=== PATIENT | female | born 1990 ===

== ENCOUNTER 2018-12-22 13:37 | Emergency (ER) | payer OTHER ==
[2018-12-22 14:01] VITALS: RESP 18; BMI 46.3
[2018-12-22 14:26] LABS: URINE BILIRUBIN NEGATIVE (NEGATIVE); URINE BLOOD NEGATIVE (NEGATIVE); URINE GLUCOSE (UA) NEGATIVE (NEGATIVE); URINE LEUKOCYTE ESTERASE NEGATIVE Leu/uL (NEGATIVE); URINE PROTEIN NEGATIVE mg/dL (<30 mg/dL); URINE UROBILINOGEN 0.2 E.U./dL (<1 E.U./dL)
[2018-12-22 14:27] LABS: HCG,QUALITATIVE URINE POSITIVE (NEGATIVE); URINE APPEARANCE CLEAR (CLEAR); URINE COLOR YELLOW (YELLOW)
--- NOTE | 2018-12-22 14:36 | ED PDOC ---
Arrival/HPI - General Chief Complaint: Abdominal Pain Historian: Patient - History of Present Illness Narrative History of Present Illness (Text): 12/22/18 14:34 28 y/o female, no significant pmh, nkda, , LMP 10/11/2018, c/o nausea/vomiting x 2 days. Pt. stated that she think she is , been having nausea and vomiting, no vaginal bleeding or discharge, no flank pain, no palpitation, no rash, no night sweat, no other medical or psychological complaints. Past Medical History - Provider Review Nursing Documentation Reviewed: Yes - Infectious Disease Hx of Infectious Diseases: None - Psychiatric Hx Substance Use: No - Surgical History Hx Abdominal Aortic Aneurysm Repair: No Hx Section: Yes Hx Orthopedic Surgery: Yes (left ankle plates /rods) - Anesthesia Hx Anesthesia: Yes Hx Anesthesia Reactions: No Family/Social History - Physician Review Nursing Documentation Reviewed: Yes Family/Social History: Unknown Family HX Smoking Status: Never Smoked Hx Alcohol Use: No Hx Substance Use: No Allergies/Home Meds Allergies/Adverse Reactions: Allergies No Known Allergies Allergy (Verified 11/14/17 05:51) Home Medications: Home Meds Medication Instructions Recorded Confirmed Etonogestrel [Nexplanon] 68 mg SQ TITR 11/14/17 11/14/17 Review of Systems - Review of Systems Constitutional: absent: Fatigue, Fevers Eyes: absent: Vision Changes ENT: absent: Hearing Changes Respiratory: absent: SOB, Cough Cardiovascular: absent: Chest Pain Gastrointestinal: Nausea, Vomiting. absent: Abdominal Pain, Diarrhea, Anorexia, Food Intolerance Genitourinary Female: absent: Dysuria, Frequency, Hematuria, Urine Output Changes Musculoskeletal: absent: Arthralgias, Back Pain Skin: absent: Rash, Pruritis Neurological: absent: Headache, Dizziness Psychiatric: absent: Anxiety, Depression, Suicidal Ideation Physical Exam Vital Signs Reviewed: Yes Vital Signs Temp Pulse Resp BP Pulse Ox 12/22/18 14:01 98.4 F 90 18 125/76 100 Temperature: Afebrile Blood Pressure: Normal Pulse: Regular Respiratory Rate: Normal Appearance: Positive for: Well-Appearing, Non-Toxic, Comfortable Pain Distress: Mild Mental Status: Positive for: Alert and Oriented X 3 - Systems Exam Head: Present: Atraumatic, Normocephalic Pupils: Present: PERRL Extroacular Muscles: Present: EOMI Conjunctiva: Present: Normal Mouth: Present: Moist Mucous Membranes Nose (External): Present: Atraumatic. No: Abrasion, Contusion, Laceration Nose (Internal): Present: Normal Inspection, No Active Bleeding. No: Edematous, Rhinorrhea, Septal Deviation, Septal Hematoma, Epistaxis Neck: Present: Normal Range of Motion Respiratory/Chest: Present: Clear to Auscultation, Good Air Exchange. No: Respiratory Distress, Accessory Muscle Use, Wheezes, Decreased Breath Sounds, Rales, Retracting, Rhonchi, Tachypneic, Tender to Palpation Cardiovascular: Present: Regular Rate and Rhythm, Normal S1, S2. No: Murmurs Abdomen: No: Tenderness, Distention, Peritoneal Signs, Rebound, Guarding Genitourinary/Pelvic Exam: Present: Other (Pt. declined. ) Back: Present: Normal Inspection. No: CVA Tenderness, Midline Tenderness, Paraspinal Tenderness, Pain with Leg Raise, Decubitus Ulcer Upper Extremity: Present: Normal Inspection. No: Cyanosis, Edema Lower Extremity: Present: Normal Inspection. No: Edema Neurological: Present: GCS=15, CN II-XII Intact, Speech Normal, Motor Func Grossly Intact, Normal Cerebellar Funct, Gait Normal, Memory Normal Skin: Present: Warm, Dry, Normal Color. No: Rashes Psychiatric: Present: Alert, Oriented x 3, Normal Insight, Normal Concentration Medical Decision Making ED Course and Treatment: 12/22/18 14:37 -Labs -Sonogram -Observe and reassess 12/22/18 16:13 -Urine hcg is negative -UA show no UTI -Beta hcg 1502 -Blood type B+ -Labs show no acute findings -Sonogram ossible early intrauterine gestation. Sac diameter of 4 mm is out of range for age determination. No pole. No detectable cardiac activity. No subchorionic hemorrhage. There fluid in the pelvis, of uncertain significance. -Pt. has no pain, no vaginal bleeding/discharge. -Labs and radiology result discussed with patient, advised outpatient obgyn for follow up lab work and sonogram follow up. -Discharge home with diclegis for nausea/vomiting during , tylenol for pain as needed, follow up with your own pmd and obgyn within 2 days, return to the ER for any new or worsening signs or symptoms. - Lab Interpretations Lab Results: Urine Color Yellow (YELLOW) 12/22/18 13:59 Urine Appearance Clear (CLEAR) 12/22/18 13:59 Urine pH 6.0 (4.7-8.0) 12/22/18 13:59 Ur Specific Reynolds 1.025 (1.005-1.035) 12/22/18 13:59 Urine Protein Negative mg/dL (<30 mg/dL) 12/22/18 13:59 Urine Glucose (UA) Negative mg/dL (NEGATIVE) 12/22/18 13:59 Urine Ketones Negative mg/dL (NEGATIVE) 12/22/18 13:59 Urine Blood Negative (NEGATIVE) 12/22/18 13:59 Urine Nitrate Negative (NEGATIVE) 12/22/18 13:59 Urine Bilirubin Negative (NEGATIVE) 12/22/18 13:59 Urine Urobilinogen 0.2 E.U./dL (<1 E.U./dL) 12/22/18 13:59 Ur Leukocyte Esterase Negative Diana/uL (NEGATIVE) 12/22/18 13:59 Urine HCG, Qual Positive (NEGATIVE) 12/22/18 13:59 Urine HCG, Qual Positive (NEGATIVE) 12/22/18 13:59 - RAD Interpretation Radiology Orders: 12/22/18 14:31 TRANSVAGINAL [US] Stat Date of service: 12/22/2018 PROCEDURE: OB Pelvic Ultrasound HISTORY: , abd pain 11/11/2018 COMPARISON: None available. FINDINGS: UTERUS: Gestational sac: There is an intrauterine gestational sac measuring 4 mm in diameter. This is out of range for age determination. There is no identifiable yolk sac or pole. There is no subchorionic hemorrhage. Date of delivery (Ultrasound estimated) : Out of range Uterus measures 10.7 x 5.2 x 5.8 cm. Normal in size and appearance. CERVIX: Measures 3.6 cm. Long and closed. No cervical abnormality seen. RIGHT OVARY: Not visualized LEFT OVARY: Measures 2.8 x 2.3 x 2.9 cm. No solid mass. Normal flow. FREE FLUID: There free fluid in the pelvis of uncertain significance. OTHER FINDINGS: None. IMPRESSION: Possible early intrauterine gestation. Sac diameter of 4 mm is out of range for age determination. No pole. No detectable cardiac activity. No subchorionic hemorrhage. There fluid in the pelvis, of uncertain significance. Data Management Engineer: Radiologist - PA / MAIL MESSENGER CONTRACTOR / Resident Statement MD/DO has reviewed & agrees with the documentation as recorded. Disposition/Present on Arrival - Present on Arrival Any Indicators Present on Arrival: No History of DVT/PE: No History of Uncontrolled Diabetes: No Urinary Catheter: No History of Decub. Ulcer: No History Surgical Site Infection Following: None - Disposition Have Diagnosis and Disposition been Completed?: Yes Diagnosis: , Nausea/vomiting in Disposition: HOME/ ROUTINE Disposition Time: 16:14 Patient Plan: Discharge Patient Problems: Current Active Problems Problem Status Onset Nausea/vomiting in Acute Acute Condition: GOOD Additional Instructions: -Discharge home with diclegis for nausea/vomiting during , tylenol for pain as needed, follow up with your own pmd and obgyn within 2 days, return to the ER for any new or worsening signs or symptoms. Prescriptions: Doxylamine/Pyridoxine HCl (B6) [Diclegis 10 mg-10 mg] 1 tab PO TID PRN #12 tcp PRN Reason: Other Forms: If You Can (Irish)
[2018-12-22 15:09] LABS: EOS # 0.1 (0.0-0.7); EOS % 1.2 % (1.5-5.0); LYMPH % 24.4 % (22.0-35.0); MEAN CELL VOLUME 92.3 fl (80.0-105.0); MEAN CORPUSCULAR HEMOGLOBIN 30.2 pg (25.0-35.0); MEAN CORPUSCULAR HGB CONC 32.7 g/dl (31.0-37.0); MEAN PLATELET VOLUME 10.3 fl (7.0-11.0); MONO # 0.4 (0.1-0.6); MONO % 5.3 % (1.0-6.0); RBC 4.3 10^6/uL (3.5-6.1); RED CELL DISTRIBUTION WIDTH 13.3 % (11.5-14.5); WHITE BLOOD COUNT 8.3 10^3/uL (4.5-11.0)
[2018-12-22 15:21] LABS: ALB/GLOB RATIO 1.3 (1.1-1.8); BLOOD UREA NITROGEN 8 mg/dL (7-21); CALCIUM 8.9 mg/dL (8.4-10.5); GFR NON-AFRICAN AMERICAN > 60; LIPASE 190 U/L (23-300)
--- NOTE | 2018-12-22 15:35 | US ---
Date of service: 12/22/2018 PROCEDURE: OB Pelvic Ultrasound HISTORY: , abd pain 11/11/2018 COMPARISON: None available. FINDINGS: UTERUS: Gestational sac: There is an intrauterine gestational sac measuring 4 mm in diameter. This is out of range for age determination. There is no identifiable yolk sac or pole. There is no subchorionic hemorrhage. Date of delivery (Ultrasound estimated) : Out of range Uterus measures 10.7 x 5.2 x 5.8 cm. Normal in size and appearance. CERVIX: Measures 3.6 cm. Long and closed. No cervical abnormality seen. RIGHT OVARY: Not visualized LEFT OVARY: Measures 2.8 x 2.3 x 2.9 cm. No solid mass. Normal flow. FREE FLUID: There free fluid in the pelvis of uncertain significance. OTHER FINDINGS: None. IMPRESSION: Possible early intrauterine gestation. Sac diameter of 4 mm is out of range for age determination. No pole. No detectable cardiac activity. No subchorionic hemorrhage. There fluid in the pelvis, of uncertain significance.
[2018-12-22 15:46] LABS: ALT/SGPT 18 U/L (7-56); AST/SGOT 25 U/L (14-36)
[2018-12-22 16:23] VITALS: BP 132/76; PULSE 82; TEMP 98; O2SAT 98
== END 2018-12-22 16:23 | disposition home or self-care (01) ==
LOC: ED 13:37
DX: O21.9 Vomiting of pregnancy, unspecified (principal); Z3A.00 Weeks of gestation of pregnancy not specified